=== PATIENT | male | born 1950 | race Caucasian/White ===

== ENCOUNTER 2023-08-22 09:01 | Emergency (ER) | payer BC ==
[~2023-08-22] VITALS: Ht 157.5 cm; Wt 61.0 kg
[2023-08-22 09:10] VITALS: TEMP 98.5; O2SAT 99
[2023-08-22 10:07] VITALS: BP 126/85; PULSE 85; RESP 20
[2023-08-22] MEDS: IBUPROFEN 600MG TABLET PO ONE (10:07)
[2023-08-22] MEDS ORDERED: SULF1TAB48 MT (10:11)
[2023-08-22] MEDS ORDERED: CEPH500T MT (10:11)
== END 2023-08-22 10:30 | disposition home or self-care (01) ==
LOC: ER 09:01
DX: L03.031 Cellulitis of right toe (principal); E11.9 Type 2 diabetes mellitus without complications; I10 Essential (primary) hypertension
CPT/HCPCS: 73630; 99283